=== PATIENT | male | born 1940 | race African-American/Black ===

== ENCOUNTER 2020-05-25 00:21 | Inpatient (IN) | payer OTHER, MEDICARE ==
[~2020-05-25] VITALS: Ht 188 cm; Wt 54.0 kg
--- NOTE | 2020-05-25 00:30 | NUR ---
PT HERNANDO FROM HOME C/O GENERALIZED WEAKNESS AFTER FASTING X10 DAYS. PT STATES THAT "I TRY TO BE HEALTHY", PT ABLE TO MOVE ALL EXTREMITIES, FOLLOWS COMMANDS. PT AAOX4, VSS. NAD, BREATHING EVEN AND UNLABORED. PT CONNECTED TO MONITOR AND POX CALL LIGHT WITHIN REACH. WILL CONTINUE TO MONITOR.
[2020-05-25 00:58] LABS: HEMOGLOBIN 15.6 g/dL (13.5-17.5); MEAN CORPUSCULAR HGB CONC 34 g/dl (31.0-36.0); MEAN CORPUSCULAR VOLUME 89 fL (80-96)
[2020-05-25 01:04] LABS: BASOPHILS % (AUTO) 0.5 % (0.0-2.0); HEMATOCRIT 46 % (39-51); LYMPHOCYTES # (AUTO) 0.6 /CMM (0.8-4.8); LYMPHOCYTES % (AUTO) 8.6 % (20.0-44.0); MONOCYTES # (AUTO) 0.5 /CMM (0.1-1.30); MONOCYTES % (AUTO) 6.3 % (2.0-12.0); NEUTROPHILS # (AUTO) 6.4 /CMM (1.8-8.9); NEUTROPHILS % (AUTO) 84.6 % (43.0-81.0); PLATELET COUNT (AUTO) 230 /CMM (150-450); WHITE BLOOD COUNT (AUTO) 7.6 K/uL (4.3-11.0)
[2020-05-25 01:13] LABS: CALCIUM, SERUM 9.3 mg/dL (8.5-10.1); CARBON DIOXIDE 20 mmol/L (21-32); CHLORIDE 98 mmol/L (98-107); CREATININE 1.8 mg/dL (0.6-1.3); GLUCOSE 130 mg/dL (74-106); POTASSIUM 3.6 mmol/L (3.5-5.1); SODIUM SERUM 135 mmol/L (136-145); UREA NITROGEN, BLOOD 32 mg/dL (7-18)
[2020-05-25 01:18] LABS: ALANINE AMINOTRANSFERASE 39 U/L (12-78); ALKALINE PHOSPHATASE 57 U/L (46-116); ASPARTATE AMINOTRANSFERASE 50 U/L (15-37); BILIRUBIN,DIRECT 0.3 mg/dL (0.0-0.2); BILIRUBIN,TOTAL 1.1 mg/dL (0.2-1.0)
[2020-05-25] MEDS ORDERED: IV NS 0.9% 1,000 ML BAG IV ONE (01:30)
--- NOTE | 2020-05-25 01:47 | NUR ---
FOOD PROVIDED TO PT BUT UNABLE TO TOLERATE EATING. PT STATES "I CANT DO IT. I DONT KNOW WHY AND ITS HARD FOR ME TO EAT. AWARE
--- NOTE | 2020-05-25 02:31 | NUR ---
CALLED NURSING SUP FOR BED
[2020-05-25] MEDS ORDERED: MAG HYDROX/AL HYDROX/SIMETH 30 ML UDC PO PRN ×2 (04:00→07:30)
[2020-05-25] MEDS ORDERED: ACETAMINOPHEN 325 MG TABLET PO PRN ×2 (04:00→07:30)
[2020-05-25] MEDS ORDERED: Z GUARD REMEDY 2 OZ OINT TP PRN ×2 (04:00→07:30)
[2020-05-25] MEDS ORDERED: IV NS 0.9% 1,000 ML IV PRN (04:00)
[2020-05-25] MEDS ORDERED: HYDROCODONE/APAP 5/325MG TABLET PO PRN (04:00)
[2020-05-25] MEDS ORDERED: MAGNESIUM HYDROXIDE 30 ML UDC PO PRN ×2 (04:00→07:30)
[2020-05-25] MEDS ORDERED: ONDANSETRON HCL/PF 4 MG/2 ML VIAL IVP PRN ×2 (04:00→07:30)
--- NOTE | 2020-05-25 04:30 | NUR ---
PT RESTING COMFORTABLY. VSS, NO MEDICAL COMPLAINTS AT THIS TIME. CALL LIGHT WITHIN REACH. WILL CONTINUE TO MONITOR.
--- NOTE | 2020-05-25 07:15 | NUR ---
PT UNABLE TO URINATE. DANICA CORDOVA MADE AWARE
--- NOTE | 2020-05-25 07:23 | NUR ---
REPORT GIVEN TO NIKKI JANE FOR ELIZABETH
[2020-05-25] MEDS ORDERED: TEMAZEPAM 15 MG CAPSULE PO PRN (07:30)
[2020-05-25] MEDS ORDERED: LORAZEPAM INJ 2 MG/ML VIAL IV PRN (07:30)
[2020-05-25 07:43] LABS: BILIRUBIN,URINE NEGATIVE (NEGATIVE); BLOOD, URINE SMALL Ery/uL (NEGATIVE); COLOR,URINE DARK YELLOW (YELLOW); LEUKOCYTE ESTERASE ,URINE NEGATIVE (NEGATIVE); NITRITE, URINE NEGATIVE (NEGATIVE); PH,URINE 5.5 (5.0-8.0); PROTEIN,URINE 100 mg/dl (NEGATIVE); UGLUCOSE NEGATIVE (NEGATIVE); UROBILINOGEN,URINE 0.2 EU/dL (0.2)
--- NOTE | 2020-05-25 07:44 | NUR ---
Made aware of plan of care. Await admission-NO available inpatient beds at this time
[2020-05-25] MEDS ORDERED: PANTOPRAZOLE 40 MG VIAL ONE (07:48)
[2020-05-25] MEDS: IV NS 0.9% 1,000 ML IV PRN ×2 (08:41→14:16)
[2020-05-25] MEDS ORDERED: PANTOPRAZOLE 40 MG VIAL IV SCH (09:00)
[2020-05-25 09:16] LABS: BACTERIA,URINE Rare /HPF (None Seen); RBC,URINE 0-2 /HPF (0-2); SQUAMOUS EPITHELIAL CELL,UR Few /HPF (None Seen); WBC,URINE 0-2 /HPF (0-3)
--- NOTE | 2020-05-25 11:56 | NUR ---
Offered clear liquids-able to tolerate w/o any issue advanced to soft foods as tolerated. Status quo. Still waiting for bed assignment. Denies any pain at this time, Hums at times NO acute distress VS to routine/shift
[2020-05-25 12:18] LABS: BASOPHILS # (AUTO) 0.1 /CMM (0.0-0.2); HEMATOCRIT 43 % (39-51); HEMOGLOBIN 14.5 g/dL (13.5-17.5); LYMPHOCYTES # (AUTO) 0.3 /CMM (0.8-4.8); LYMPHOCYTES % (AUTO) 3.7 % (20.0-44.0); MEAN CORPUSCULAR HGB CONC 34 g/dl (31.0-36.0); MEAN CORPUSCULAR VOLUME 90 fL (80-96); MONOCYTES # (AUTO) 0.4 /CMM (0.1-1.30); MONOCYTES % (AUTO) 4.6 % (2.0-12.0); NEUTROPHILS # (AUTO) 7.2 /CMM (1.8-8.9); NEUTROPHILS % (AUTO) 90.7 % (43.0-81.0); PLATELET COUNT (AUTO) 201 /CMM (150-450); RED BLOOD CELL COUNT(AUTO) 4.81 MIL/uL (4.5-6.0)
[2020-05-25 12:26] LABS: CALCIUM, SERUM 8.7 mg/dL (8.5-10.1); CARBON DIOXIDE 22 mmol/L (21-32); CHLORIDE 103 mmol/L (98-107); CREATININE 1.4 mg/dL (0.6-1.3); GLUCOSE 112 mg/dL (74-106); POTASSIUM 4.2 mmol/L (3.5-5.1); SODIUM SERUM 136 mmol/L (136-145); UREA NITROGEN, BLOOD 27 mg/dL (7-18)
[2020-05-25 12:31] LABS: ALANINE AMINOTRANSFERASE 35 U/L (12-78); ALBUMIN 3.4 g/dL (3.4-5.0); ALKALINE PHOSPHATASE 50 U/L (46-116); ASPARTATE AMINOTRANSFERASE 47 U/L (15-37); BILIRUBIN,TOTAL 0.9 mg/dL (0.2-1.0); MAGNESIUM 2.5 mg/dL (1.8-2.4); PHOSPHORUS 3.1 mg/dL (2.5-4.9); TOTAL PROTEIN, SERUM 7.9 g/dL (6.4-8.2)
[2020-05-25] MEDS ORDERED: LEVOFLOXACIN 750 MG /D5W 150ML 150 ML IV ONE (14:15)
[2020-05-25] MEDS: LEVOFLOXACIN 750 MG /D5W 150ML 150 ML IV SCH (14:16)
--- NOTE | 2020-05-25 16:19 | NUR ---
updated with plan of care. Await admission NO beds available at this time- pt made aware
[2020-05-25] MEDS ORDERED: FAMOTIDINE/PF INJ 20 MG/2 ML VIAL IV ONE (17:11)
--- NOTE | 2020-05-25 17:17 | NUR ---
bed 321-2
[2020-05-25] MEDS: FAMOTIDINE/PF INJ 20 MG/2 ML VIAL IV SCH (17:20)
--- NOTE | 2020-05-25 17:33 | NUR ---
Pt going to 321-2 Report given to BUCK Crawford by Darren JANE
--- NOTE | 2020-05-25 17:36 | NUR ---
report given to antonio dawn. pt awaiting transfer to floor.
--- NOTE | 2020-05-25 18:35 | NUR ---
TELE/RN NOTE Received patient from ER nurse. Vitals taken. Will endorse to warehouse worker 2nd shift nurse for ELIZABETH.
--- NOTE | 2020-05-25 19:30 | NUR ---
MS/RN OPENING NOTES RECEIVED PATIENT RESTING IN BED. PATIENT IS ALERT AND ORIENTED X 3. NO SIGNS OF DISTRESS NOTED. BREATHING IS EVEN AND UNLABORED. NO SIGNS OF SOB OR RESPIRATORY DISTRESS NOTED. IV ACCESS ON RIGHT AC 18G INTACT RUNNING NS AT 125 ML/HR . PATIENT STATES NO PAIN AT THIS TIME. PATIENT REFUSED SKIN ASSESSMENT AND DID NOT WANT TO REMOVE CLOTHES AT THIS TIME, RISK AND BENEFITS HAVE BEEN EXPLAINED TO PATIENT OF SKIN ASSESSMENT. SAFETY MEASURES ARE IN PLACE, BED LOCKED AND PLACED IN THE LOW POSITION CALL LIGHT WITHIN REACH, SIDE RAILS UP X 2. WILL CONTINUE TO MONITOR.
[2020-05-25 20:00] VITALS: BP 113/80
--- NOTE | 2020-05-25 22:50 | NUR ---
TELE/RN NOTES PATIENT HAVING TROUBLE SLEEPING AND IS FEELING RESTLESS. REQUESTING FOR HELP WITH SLEEP. ATIVAN 0.5MG IV WAS GIVEN. V/S ARE STABLE. WILL CONTINUE TO MONITOR.
[2020-05-26] VITALS: BP 114/58
[2020-05-26 04:00] VITALS: BP 122/86
--- NOTE | 2020-05-26 06:20 | NUR ---
MS/RN CLOSING NOTES RECEIVED PATIENT RESTING IN BED. PATIENT IS ALERT AND ORIENTED X 2-3. NO SIGNS OF DISTRESS NOTED. BREATHING IS EVEN AND UNLABORED. NO SIGNS OF SOB OR RESPIRATORY DISTRESS NOTED. IV ACCESS ON RIGHT AC 18G INTACT RUNNING NS AT 125 ML/HR . ALL PATIENT NEEDS HAVE BEEN MET DURING SHIFT. SAFETY MEASURES ARE IN PLACE, BED LOCKED AND PLACED IN THE LOW POSITION CALL LIGHT WITHIN REACH, SIDE RAILS UP X 2. WILL ENDORSE CARE TO DAY SHIFT NURSE.
[2020-05-26 07:21] LABS: BASOPHILS % (AUTO) 0.2 % (0.0-2.0); HEMATOCRIT 43 % (39-51); HEMOGLOBIN 14.5 g/dL (13.5-17.5); LYMPHOCYTES # (AUTO) 0.4 /CMM (0.8-4.8); LYMPHOCYTES % (AUTO) 4.8 % (20.0-44.0); MEAN CORPUSCULAR HGB CONC 34 g/dl (31.0-36.0); MEAN CORPUSCULAR VOLUME 89 fL (80-96); MONOCYTES # (AUTO) 0.4 /CMM (0.1-1.30); MONOCYTES % (AUTO) 5.1 % (2.0-12.0); NEUTROPHILS # (AUTO) 7.1 /CMM (1.8-8.9); NEUTROPHILS % (AUTO) 89.9 % (43.0-81.0); PLATELET COUNT (AUTO) 199 /CMM (150-450); WHITE BLOOD COUNT (AUTO) 7.9 K/uL (4.3-11.0)
[2020-05-26 07:59] LABS: ALANINE AMINOTRANSFERASE 41 U/L (12-78); ALKALINE PHOSPHATASE 44 U/L (46-116); ASPARTATE AMINOTRANSFERASE 62 U/L (15-37); BILIRUBIN,TOTAL 0.8 mg/dL (0.2-1.0); CALCIUM, SERUM 8.4 mg/dL (8.5-10.1); CARBON DIOXIDE 19 mmol/L (21-32); CHLORIDE 103 mmol/L (98-107); CREATININE 1.3 mg/dL (0.6-1.3); GLUCOSE 91 mg/dL (74-106); MAGNESIUM 2.5 mg/dL (1.8-2.4); PHOSPHORUS 3.1 mg/dL (2.5-4.9); POTASSIUM 3.4 mmol/L (3.5-5.1); SODIUM SERUM 136 mmol/L (136-145); TOTAL PROTEIN, SERUM 7.4 g/dL (6.4-8.2); UREA NITROGEN, BLOOD 24 mg/dL (7-18)
[2020-05-26 08:00] VITALS: BP 150/78
--- NOTE | 2020-05-26 08:00 | NUR ---
TRANSFERRED PT TO MS 2 207-1 WITH MEDS AND BELONGINGS AND GAVE REPORT TO BUCK FREDERICK WITH STABLE V/S.
[2020-05-26 08:13] LABS: CHOLESTEROL 142 mg/dL (<200); HDL CHOLESTEROL 36 mg/dL (40-60); LDL 91 mg/dL (0-99); TRIGLYCERIDES 102 mg/dL (30-150)
--- NOTE | 2020-05-26 08:23 | NUR ---
RAIMANN MACHINE OPERATOR OPENING NOTES RECEIVED TRANSFER FROM [facility]; PATIENT AWAKE, A/O X2. PATIENT ON ROOM AIR AT THIS TIME TOLERATING WELL AT 94%; BREATHING IS EVEN AND UNLABORED; NO SOB PRESENT. TELE MONITOR WITH A CURRENT READING OF SINUS RHYTHM 80S. NO COMPLAINS OF PAIN. IV ACCESS MISSING. SAFETY PRECAUTIONS IN PLACE; BED IN LOW POSITION AND LOCKED, RAILS UP X2, CALL LIGHT WITHIN REACH. WILL CONTINUE TO MONITOR PATIENT.
[2020-05-26] MEDS: FAMOTIDINE/PF INJ 20 MG/2 ML VIAL IV SCH ×2 (09:00→17:46)
[2020-05-26] MEDS: IV NS 0.9% 1,000 ML IV PRN ×2 (10:06→12:42)
--- NOTE | 2020-05-26 10:42 | NUR ---
PRINTED CIRCUIT BOARD REWORKER NOTES PATIENT TRANSFERRED TO BUCK TOSCANO FOR CONTINUITY OF CARE.
[2020-05-26] MEDS ORDERED: POTASSIUM CHLORIDE 20 MEQ TAB.PRT.SR PO SCH (11:30)
[2020-05-26 12:00] VITALS: BP_SYST 122; BP_SYST 154; BP_DIAS 61; BP_DIAS 71
[2020-05-26] MEDS: LEVOFLOXACIN 750 MG /D5W 150ML 150 ML IV SCH (12:41)
[2020-05-26] MEDS: ENOXAPARIN SODIUM 40 MG/0.4 ML DISP.SYRIN SQ SCH (12:42)
--- NOTE | 2020-05-26 13:00 | NUR ---
INCINERATOR PLANT LABORER NOTES STARTED NEW PERIPHERAL IV ON LEFT FA. G 22 WITH GOOD BLOOD RETURN.
--- NOTE | 2020-05-26 19:31 | NUR ---
NETWORK OPERATIONS ANALYST NOTES PATIENT IN BED RESTING NO SOB OR ACUTE DISTRESS NOTED. ALL DUE MEDICATIONS ADMINISTERED. ALL NEEDS MET. NO ACUTE CHANGES NOTED DURING AM SHIFT. ENDORSED CARE TO PM SHIFT.
--- NOTE | 2020-05-26 19:50 | NUR ---
ENVIRONMENTAL CONSTRUCTION ENGINEER OPENING NOTES RECEIVED PATIENT RESTING IN BED COMFORTABLY; A/OX4, BREATHING EVEN AND UNLABORED; TOLERATING ROOM AIR WELL BUT USES 4LPM VIA NC PRN; ABLE TO MAKE NEEDS KNOWN; TELE MONITOR READS SINUS RHYTHM 87BPM; R AC # 18 INTACT AND PATENT; TOLERATING IVF WELL; SAFETY PRECAUTIONS IMPLEMENTED; BED LOCKED IN LOW POSITION; SIDE RAILSX2; CALL LIGHT WITHIN REACH; WILL CONT TO MONITOR
[2020-05-26 20:00] VITALS: BP 152/104
--- NOTE | 2020-05-26 20:32 | NUR ---
CONTINUOUS IMPROVEMENT ENGINEER NOTES PATIENT REMOVED IV ACCESS, PATIENT REFUSING RE-INSERTION AT THIS TIME; PATIENT EXPERIENCING SOB DURING ACTIVITY; PATIENT PLACED ON 4LPM VIA NC, TOLERATING WELL; SATTING @ 97%, WILL CONT TO MONITOR
--- NOTE | 2020-05-26 21:00 | NUR ---
CREDIT RISK SPECIALIST NOTES PATIENT REFUSING APPLICATION OF DVT PUMPS HE IS ABLE TO AMBULATE TO THE BATHROOM ON HIS OWN; RISKS/BENEFITS DISCUSSED; PATIENT STILL REFUSED; WILL CONT TO MONITOR
[2020-05-27] VITALS: BP 138/67
--- NOTE | 2020-05-27 03:42 | NUR ---
DIGESTER COOK NOTES PATIENT COVID RESULT POSITIVE; ISOLATION PRECAUTIONS MAINTAINED; WILL CONT TO MONITOR
[2020-05-27 04:00] VITALS: BP 117/71
--- NOTE | 2020-05-27 04:32 | NUR ---
ELECTION ASSISTANT NOTES PATIENT STILL REFUSING IV ACCESS, MD MADE AWARE; AWAITING MD ORDER IF POSSIBLE TO CHANGE IV LEVAQUIN 750MG [id number] TO PO INSTEAD; AWAITING MD ORDERS; WILL INFORM DAY SHIFT; WILL CONT TO MONITOR
--- NOTE | 2020-05-27 05:32 | NUR ---
CUSTOM DECORATING CONSULTANT NOTES PER VAMSHI WASSERMAN TO CHANGE LEVAQUIN 750MG IV TO PO INSTEAD; ORDERS RECEIVED AND READ BACK, FOLLOWED THROUGH; WILL INFORM DAY SHIFT AND CONT TO MONITOR PATIENT;
--- NOTE | 2020-05-27 06:50 | NUR ---
BRAZER REPAIR AND SALVAGE CLOSING NOTES PATIENT RESTING IN BED COMFORTABLY; A/OX2-3, AGGRAVATED D/T FINDING OUT COVID RESULT IS POSITIVE; PER PATIENT, HE HAS BEEN ISOLATION AT HOME SINCE AUGUST AND RARELY GOES OUT OF HIS HOME; PER PATIENT, "HOW CAN I BE COVID+ IF I HAVE BEEN CAREFUL, I ONLY TOOK THE AMBULANCE FOR A COUPLE MINUTES AND ALL OF A SUDDEN I AM POSITIVE?" PATIENT EDUCATED ON COVID, PATIENT STILL ANGRY; PATIENT NON-COMPLIANT AT TIMES; BREATHING EVEN AND UNLABORED; PATIENT TOLERATING 4LPM VIA NC PRN WELL; NO SOB NOTED; TELE MONITOR READS SINUS RHYTHM; PATIENT STILL REFUSING IV ACCESS; MADE AWARE, OK TO CHANGE ORDER FROM IV LEVAQUIN 750MG TO PO; WILL INFORM DAY SHIFT; ALL NEEDS RENDERED; SAFETY PRECAUTIONS IMPLEMENTED; BED LOCKED IN LOW POSITION; SIDE RAILSX2; CALL LIGHT WITHIN REACH; WILL ENDORSE ELIZABETH TO ONCOMING SHIFT
[2020-05-27 07:35] LABS: CALCIUM, SERUM 8.8 mg/dL (8.5-10.1); CREATININE 1.3 mg/dL (0.6-1.3); POTASSIUM 3.5 mmol/L (3.5-5.1)
--- NOTE | 2020-05-27 07:50 | NUR ---
TELE/RN OPENING NOTES RECEIVED PATIENT IS ON BED, AWAKE, ALERT AND ORIENTED X 4. NO COMPLAINED OF PAIN AT THIS TIME. PATIENT IN NO APPARENT RESPIRATORY DISTRESS NOTED. TELE MONITOR READING SR 86 BPM. OXYGEN AT 4L/MIN TOLERATING WILL. WILL CONTINUE TO MONITOR.
[2020-05-27 08:00] VITALS: BP 133/57
[2020-05-27] MEDS: ENOXAPARIN SODIUM 40 MG/0.4 ML DISP.SYRIN SQ SCH (08:19)
[2020-05-27] MEDS: FAMOTIDINE/PF INJ 20 MG/2 ML VIAL IV SCH (08:31)
--- NOTE | 2020-05-27 08:32 | NUR ---
MS/RN NOTES PATIENT REFUSED TO INSERT PERIPHERAL IV ACCESS AND FAMOTIDINE 20MG IV, EXPLAINED THE RISK AND BENEFITS.
[2020-05-27] MEDS ORDERED: CEFEPIME 1 GM in IV D5W 50 ML IV SCH (11:30)
[2020-05-27 12:00] VITALS: BP 146/74
[2020-05-27] MEDS: DOXYCYCLINE HYCLATE (100 MG) 100 MG TABLET PO SCH ×2 (12:27→20:53)
[2020-05-27] MEDS: DEXAMETHASONE SOD PHOSPHATE 10 MG/ML VIAL IV SCH (12:28)
[2020-05-27] MEDS: ENSURE ENLIVE CHOC 237 ML CAN PO SCH ×2 (12:29→16:55)
[2020-05-27] MEDS: IV NS 0.9% 1,000 ML IV PRN (12:48)
[2020-05-27] MEDS: CEFEPIME 2 GM in IV D5W 100 ML IV SCH ×2 (13:50→23:04)
[2020-05-27] MEDS ORDERED: LEVOFLOXACIN (250MG) 250 MG TABLET PO SCH (14:00)
[2020-05-27] MEDS ORDERED: REMDESIVIR (CHARGED) 200 MG, *LOADING DOSE 1 EA in IV NS 0.9% 210 ML IV ONE (15:00)
[2020-05-27 16:00] VITALS: BP 147/77
[2020-05-27] MEDS: PANTOPRAZOLE 40 MG TABLET.DR PO SCH (16:56)
--- NOTE | 2020-05-27 19:35 | NUR ---
RN OPENING NOTES RECEIVED PT IN BED, RESTING A/O X3. ISOLATION PRECAUTIONS IN PLACE PER COVID 19 POSITIVE RESULT. PT IS NOT IN ANY RESPIRATORY DISTRESS, NO SOB NOTED. PT IS CURRENTLY ON OXYGEN AT 4 L/MIN VIA NASAL CANNULA TOLERATING WELL. BREATHING IS EVEN AND UNLABORED AT THIS TIME. ON TELE MONITOR READING SINUS RHYTHM 78 BPM WITH BBB, PT BASELINE. IV ACCESS AT LEFT HAND # 22 PATENT AND INTACT. SAFETY PRECAUTIONS IN PLACE. HOB ELEVATED TOLERATED. PT ID BAND ON. BED IN LOCKED IN LOWEST POSITION WITH BED ALARM ON. SIDE RAILS UP X2. CALL LIGHT WITHIN REACH. WILL CONTINUE TO MONITOR.
--- NOTE | 2020-05-27 19:48 | NUR ---
TELE/RN CLOSING NOTES PATIENT IS ON BED. ALERT AND ORIENTED X3. PATIENT IN NO APPARENT RESPIRATORY DISTRESS NOTED. NO COMPLAINED OF PAIN NOTED AT THIS TIME. OXYGEN AT 4 L/MIN VIA NASAL CANNULA TOLERATING WELL. TELE MONITOR READING SINUS RHYTHM 78 BPM WITH BBB. SEEN AND EXAMINED BY MD WITH ORDERS. IV ACCESS AT LEFT HAND # 22 G PATENT AND INTACT. ALL DUE MEDICATION WAS GIVEN. SAFETY PRECAUTIONS WAS IN PLACED. BED IN LOWEST POSITION AND LOCKED. SIDERAILS UP X2. CALL LIGHT WITHIN REACH. WILL ENDORSED TO SCHOOL PHYSICAL THERAPIST FOR ELIZABETH.
[2020-05-27 20:00] VITALS: BP 98/62
--- NOTE | 2020-05-27 23:05 | NUR ---
PT STILL RECEIVING FLUIDS ORDERED WITH ABX ORDERED. NO S/S OF INFILTRATION NOTED AT THIS TIME. WILL CONTINUE TO MONITOR.
[2020-05-28] VITALS: BP 133/74
--- NOTE | 2020-05-28 02:44 | NUR ---
PT RESTING WITH BLANKET OVER HIS HEAD. WHEN ASKED ABOUT BLANKET, PT VERBALIZED HE IS COMFORTABLE THIS WAY. PT IS NOT IN DISTRESS AT THIS TIME. DENIES PAIN. WILL CONTINUE TO MONITOR.
--- NOTE | 2020-05-28 04:07 | NUR ---
UPON ENTERING PT ROOM, IV HAS BEEN REMOVED. PT VERBALIZES IT JUST CAME OUT. CATHETER REMAINS INTACT, NO SIGNS OR SYMPTOMS OF BLEEDING NOTED. WHEN ASKED TO PLACE ANOTHER IV, PT IS WILLING ONLY ON THE LEFT SIDE AND IF IT IS ON A SINGLE ATTEMPT. WHEN USING THE VEIN FINDER/ACCU VEIN, THE RIGHT SIDE SHOWS OPTIONS TO START A NEW IV COMPARED TO LEFT. PT REFUSES IV START AT THIS TIME WHEN ASKED TO PLACE ON THE RIGHT SIDE. EXPLAINED IMPORTANCE RISKS AND BENEFITS X2 PT STILL REFUSED. WILL FOLLOW UP.
[2020-05-28 04:19] VITALS: BP 116/72
--- NOTE | 2020-05-28 06:14 | NUR ---
UNABLE TO PLACE IV AT THIS TIME EVEN WITH VEIN FINDER, PT HAS ROLLING VEINS AND CONTINUES TO MOVE DURING INSERTION. WILL ENDORSE ONCOMING NURSE FOR POSSIBLE MIDLINE IF NOT PERIPHERAL IV SITE.
[2020-05-28 06:21] LABS: BASOPHILS % (AUTO) 0.3 % (0.0-2.0); EOSINOPHILS % (AUTO) 0.1 % (0.0-6.0); HEMATOCRIT 43 % (39-51); HEMOGLOBIN 14.7 g/dL (13.5-17.5); LYMPHOCYTES # (AUTO) 0.3 /CMM (0.8-4.8); LYMPHOCYTES % (AUTO) 10.2 % (20.0-44.0); MEAN CORPUSCULAR HGB CONC 34 g/dl (31.0-36.0); MEAN CORPUSCULAR VOLUME 87 fL (80-96); MONOCYTES # (AUTO) 0.4 /CMM (0.1-1.30); MONOCYTES % (AUTO) 12.2 % (2.0-12.0); NEUTROPHILS # (AUTO) 2.6 /CMM (1.8-8.9); NEUTROPHILS % (AUTO) 77.2 % (43.0-81.0); PLATELET COUNT (AUTO) 289 /CMM (150-450); RED BLOOD CELL COUNT(AUTO) 4.95 MIL/uL (4.5-6.0); WHITE BLOOD COUNT (AUTO) 3.4 K/uL (4.3-11.0)
[2020-05-28 06:45] LABS: CALCIUM, SERUM 8.5 mg/dL (8.5-10.1); CREATININE 1.2 mg/dL (0.6-1.3); POTASSIUM 3.9 mmol/L (3.5-5.1)
--- NOTE | 2020-05-28 06:59 | NUR ---
RN CLOSING NOTES PT IS CURRENTLY RESTING IN BED. NO SIGNIFICANT CHANGES THROUGHOUT MY SHIFT, PT SLEPT WELL. AFEBRILE. PT DENIES PAIN AT THIS TIME. NO S/S OF RESPIRATORY DISTRESS NOTED. PT ON 4L NASAL CANNULA. PT TOLERATING WELL. BREATHING IS EVEN AND UNLABORED AT THIS TIME. PT STILL ON TELE MONITOR. PRESENTING WITH BASELINE HEART RHYTHM NSR. PT IS AFEBRILE, DENIES PAIN. NEEDS ATTENDED. SAFETY MEASURES IN PLACE. HOB ELEVATED TOLERATED. BED IS LOCKED IN LOWEST POSITION. SIDE RAILS UP X2. CALL LIGHT WITHIN REACH. WILL ENDORSE TO MORNING NURSE FOR CONTINUATION OF CARE.
[2020-05-28 08:00] VITALS: BP 129/77
[2020-05-28] MEDS: ENSURE ENLIVE CHOC 237 ML CAN PO SCH ×2 (08:00→17:00)
--- NOTE | 2020-05-28 08:00 | NUR ---
RN Opening note Received patient in bed sleeping AO x 2-3 able to responds all stimuli, does no appears pain or discomfort. Skin is warm to touch keep clean/dry, manager shift mentioned that there's no IV site and patient allowed make IV line only one time to nurse, therefore, no IV line currently, asked MD if okay to get midline. Respiratory even and unlabored with oxygen at 4LPM O2sat 98%, no sob or distress observed. Kept bed locked with elevated HOB for ensure airway and aspiration precaution also lowest bed position for safety. Call light within reach will continue to monitor.
[2020-05-28] MEDS: DOXYCYCLINE HYCLATE (100 MG) 100 MG TABLET PO SCH ×2 (08:55→20:55)
[2020-05-28] MEDS: ENOXAPARIN SODIUM 40 MG/0.4 ML DISP.SYRIN SQ SCH (08:58)
[2020-05-28 11:01] LABS: C-REACTIVE PROTEIN 23.9 mg/dL (0.0-0.9)
[2020-05-28] MEDS ORDERED: IV NS 0.9% 1,000 ML IV PRN (11:47)
[2020-05-28 12:00] VITALS: BP 140/81
[2020-05-28 12:34] LABS: ALBUMIN 2.9 g/dL (3.4-5.0); BILIRUBIN,DIRECT 0.2 mg/dL (0.0-0.2); BILIRUBIN,TOTAL 0.5 mg/dL (0.2-1.0); TOTAL PROTEIN, SERUM 7.8 g/dL (6.4-8.2)
[2020-05-28] MEDS: DEXAMETHASONE SOD PHOSPHATE 10 MG/ML VIAL IV SCH (15:50)
[2020-05-28] MEDS: CEFEPIME 2 GM in IV D5W 100 ML IV SCH (15:50)
[2020-05-28 16:00] VITALS: BP 124/71
--- NOTE | 2020-05-28 16:00 | NUR ---
Patient consent sign for Plasma.
[2020-05-28] MEDS: REMDESIVIR (CHARGED) 100 MG in IV NS 0.9% 230 ML IV SCH (16:26)
[2020-05-28] MEDS: PANTOPRAZOLE 40 MG TABLET.DR PO SCH (16:43)
--- NOTE | 2020-05-28 18:26 | NUR ---
RN Closing note Patient in bed resting after finished eat dinner, does no appears pain or distress. Skin is warm to touch intact new midline site on right upper arm good patency with flash. Respiratory even and unlabored with oxygen at 2LPM O2sat 96%. Kept locked bed with elevated HOB for ensure airway and aspiration precaution also lowest position for safety, call light within reach, will endorse shift supervisor.
--- NOTE | 2020-05-28 19:38 | NUR ---
RN opening notes Patient received resting in bed a/o x 2-3. On 2l of O2 with breathing even and unlabored, no sob noted. No signs of acute distress. No complaints of pain or discomfort at the moment. Tele monitor reading SR. MELANIE midline patent and intact running NS @ 125 ml/hr. Safety precautions in place with bed in lowest position, call light within reach, breaks on, side rails up. Will continue to monitor throughout the night.
[2020-05-28 20:00] VITALS: BP 128/76
--- NOTE | 2020-05-28 23:23 | NUR ---
RN NOTES FOLLOWED UP CONVALESCENT PLASMA WITH BLOOD BANK, NEED MD SIGNATURE. WILL FOLLOW UP WITH AM SHIFT.
[2020-05-29] VITALS: BP 127/76
[2020-05-29] MEDS: CEFEPIME 2 GM in IV D5W 100 ML IV SCH ×2 (00:14→13:20)
[2020-05-29 04:00] VITALS: BP 127/77
--- NOTE | 2020-05-29 07:04 | NUR ---
RN CLOSING notes Patient resting in bed a/o x 2-3. On 2l of O2 with breathing even and unlabored, no sob noted. No signs of acute distress. No complaints of pain or discomfort at the moment. Tele monitor reading SR. MELANIE midline patent and intact running NS @ 75 ml/hr. Safety precautions in place with bed in lowest position, call light within reach, breaks on, side rails up. All needs attended to. Will endorse to oncoming shift about pradip.
--- NOTE | 2020-05-29 07:53 | NUR ---
TWISTING OPERATOR OPEN NOTES PATIENT IS A/O X 3 WITH NO SIGNS OF DISTRESS ON 2L OF NASAL CANNULA. NO COMPLAIN OF PAIN AT THIS TIME. TELE MONITOR. R UA MIDLINE RUNNING NS AT 75 ML/HR. SAFETY MEASURES ARE APPLIED, BED IS IN LOW POSITION SIDE RAILS UP X 2. CALL LIGHT WITHIN REACH WILL CONTINUE TO MONITOR.
--- NOTE | 2020-05-29 07:55 | NUR ---
PATIENT REFUSED BLOOD DRAW FROM LAB AFTER EDUCATING THE PATIENT ABOUT THE RISKS AND BENEFITS, PATIENT STILL REFUSED.
[2020-05-29 08:00] VITALS: BP 149/76
[2020-05-29] MEDS: DEXAMETHASONE SOD PHOSPHATE 10 MG/ML VIAL IV SCH (09:05)
[2020-05-29] MEDS: DOXYCYCLINE HYCLATE (100 MG) 100 MG TABLET PO SCH ×2 (09:05→21:50)
[2020-05-29] MEDS: ENOXAPARIN SODIUM 40 MG/0.4 ML DISP.SYRIN SQ SCH (09:06)
[2020-05-29] MEDS: ENSURE ENLIVE CHOC 237 ML CAN PO SCH ×2 (09:09→17:00)
[2020-05-29 12:00] VITALS: BP 125/71
--- NOTE | 2020-05-29 15:46 | NUR ---
PER COURTNEY MISHRA., OK TO GIVE PATIENT REMDESIVER, WILL MONITOR CBC AND BMP LABS TOMORROW MORNING.
[2020-05-29] MEDS: REMDESIVIR (CHARGED) 100 MG in IV NS 0.9% 230 ML IV SCH (15:47)
[2020-05-29 16:00] VITALS: BP 120/67
[2020-05-29] MEDS: PANTOPRAZOLE 40 MG TABLET.DR PO SCH (18:04)
--- NOTE | 2020-05-29 19:02 | NUR ---
TRICOT KNITTER CLOSED NOTES PATIENT IS A/O X 3 WITH NO SIGNS OF DISTRESS ON 2L OF NASAL CANNULA. NO COMPLAIN OF PAIN AT THIS TIME. TELE MONITOR. R UA MIDLINE SL. PATIENT KEPT CLEAN AND DRY. ALL NEEDS, CARE, TREATMENT,AND MEDICATIONS WERE ADMINISTERED ANTICIPATED PER ORDER. SAFETY MEASURES ARE APPLIED, BED IS IN LOW POSITION SIDE RAILS UP X 2. CALL LIGHT WITHIN REACH WILL ENDORSE TO THE DEEP WELL CONTRACTOR NURSE.
[2020-05-29 20:00] VITALS: BP 126/80
[2020-05-30] VITALS (8 sets, daily range): BP systolic 118–133; BP diastolic 60–81
[2020-05-30 00:01] LABS: BASOPHILS % (AUTO) 0.2 % (0.0-2.0); EOSINOPHILS % (AUTO) 0.1 % (0.0-6.0); HEMATOCRIT 42 % (39-51); HEMOGLOBIN 14.2 g/dL (13.5-17.5); LYMPHOCYTES # (AUTO) 0.6 /CMM (0.8-4.8); LYMPHOCYTES % (AUTO) 5.5 % (20.0-44.0); MEAN CORPUSCULAR HGB CONC 34 g/dl (31.0-36.0); MEAN CORPUSCULAR VOLUME 89 fL (80-96); MONOCYTES # (AUTO) 0.7 /CMM (0.1-1.30); MONOCYTES % (AUTO) 6.8 % (2.0-12.0); NEUTROPHILS # (AUTO) 9.3 /CMM (1.8-8.9); NEUTROPHILS % (AUTO) 87.4 % (43.0-81.0); PLATELET COUNT (AUTO) 333 /CMM (150-450); RED BLOOD CELL COUNT(AUTO) 4.73 MIL/uL (4.5-6.0); WHITE BLOOD COUNT (AUTO) 10.6 K/uL (4.3-11.0)
[2020-05-30 00:18] LABS: ALBUMIN 2.7 g/dL (3.4-5.0); BILIRUBIN,DIRECT 0.1 mg/dL (0.0-0.2); BILIRUBIN,TOTAL 0.4 mg/dL (0.2-1.0); CALCIUM, SERUM 8.4 mg/dL (8.5-10.1); CREATININE 1.1 mg/dL (0.6-1.3); TOTAL PROTEIN, SERUM 6.9 g/dL (6.4-8.2)
[2020-05-30] MEDS: CEFEPIME 2 GM in IV D5W 100 ML IV SCH ×2 (00:20→12:07)
[2020-05-30 07:08] LABS: BASOPHILS % (AUTO) 0.4 % (0.0-2.0); EOSINOPHILS % (AUTO) 0.5 % (0.0-6.0); HEMATOCRIT 42 % (39-51); HEMOGLOBIN 13.9 g/dL (13.5-17.5); LYMPHOCYTES # (AUTO) 0.7 /CMM (0.8-4.8); LYMPHOCYTES % (AUTO) 7.7 % (20.0-44.0); MEAN CORPUSCULAR HGB CONC 34 g/dl (31.0-36.0); MEAN CORPUSCULAR VOLUME 89 fL (80-96); MONOCYTES # (AUTO) 0.7 /CMM (0.1-1.30); MONOCYTES % (AUTO) 7.8 % (2.0-12.0); NEUTROPHILS # (AUTO) 7.9 /CMM (1.8-8.9); NEUTROPHILS % (AUTO) 83.6 % (43.0-81.0); PLATELET COUNT (AUTO) 346 /CMM (150-450); WHITE BLOOD COUNT (AUTO) 9.4 K/uL (4.3-11.0)
[2020-05-30 07:32] LABS: ALBUMIN 2.7 g/dL (3.4-5.0); BILIRUBIN,DIRECT 0.2 mg/dL (0.0-0.2); BILIRUBIN,TOTAL 0.5 mg/dL (0.2-1.0); CALCIUM, SERUM 8.3 mg/dL (8.5-10.1); CREATININE 1.1 mg/dL (0.6-1.3); POTASSIUM 3.6 mmol/L (3.5-5.1); TOTAL PROTEIN, SERUM 6.8 g/dL (6.4-8.2)
--- NOTE | 2020-05-30 07:38 | NUR ---
BEHAVIORAL SCHOOL COUNSELORS NOTE PATIENT IN BED RESTING COMFORTABLY. PATIENT IN NO ACUTE DISTRESS. NO SOB NOTED. PATIENT BREATHING IS EVEN AND UNLABORED. PATIENT ON CARDIAC MONITORING READING SINUS RHYTHM HR 71. PATIENT SAFETY PRECAUTIONS IN PLACE. BED ALARM IS ON. PATIENT BED IS LOCKED AND IN LOWEST POSITION. CALL LIGHT WITHIN REACH. WILL CONTINUE TO MONITOR.
[2020-05-30] MEDS: ENSURE ENLIVE CHOC 237 ML CAN PO SCH ×2 (08:04→17:20)
[2020-05-30] MEDS: DEXAMETHASONE SOD PHOSPHATE 10 MG/ML VIAL IV SCH (08:06)
[2020-05-30] MEDS: DOXYCYCLINE HYCLATE (100 MG) 100 MG TABLET PO SCH ×2 (08:06→21:35)
[2020-05-30] MEDS: ENOXAPARIN SODIUM 40 MG/0.4 ML DISP.SYRIN SQ SCH (08:08)
[2020-05-30] MEDS: REMDESIVIR (CHARGED) 100 MG in IV NS 0.9% 230 ML IV SCH (15:21)
--- NOTE | 2020-05-30 17:20 | NUR ---
RN NOTE PATIENT UNDERGOING CONVALESENT PLASMA TRANSFUSION. NO ADVERSE REACTIONS NOTED. PATIENT BREATHING IS EVEN AND UNLABORED. PATIENT IN NO ACUTE DISTRESS. NO SOB NOTED. PATIENT DENIES PAIN. WILL CONTINUE TO MONITOR.
[2020-05-30] MEDS: PANTOPRAZOLE 40 MG TABLET.DR PO SCH (17:21)
--- NOTE | 2020-05-30 17:55 | NUR ---
GRIEVANCE AND APPEALS SPECIALIST NOTE PATIENT FINISHED CONVALESCENT PLASMA TRANSFUSION. TOLERATED WELL. PATIENT IN NO ACUTE DISTRESS. NO SOB NOTED. PATIENT BREATHING IS EVEN AND UNLABORED. NO ADVERSE REACTIONS NOTED.
--- NOTE | 2020-05-30 18:49 | NUR ---
JAVA SUPPORT ENGINEER NOTE PATIENT IN BED RESTING COMFORTABLY. PATIENT IN NO ACUTE DISTRESS. NO SOB NOTED. PATIENT BREATHING IS EVEN AND UNLABORED. PATIENT ON CARDIAC MONITORING READING SINUS RHYTHM HR 74. PATIENT KEPT CLEAN, DRY, AND COMFORTABLE. PATIENT SAFETY PRECAUTIONS IN PLACE. BED ALARM IS ON. PATIENT BED IS LOCKED AND IN LOWEST POSITION. CALL LIGHT WITHIN REACH. WILL ENDORSE CARE TO PM SHIFT FOR ELIZABETH.
--- NOTE | 2020-05-30 19:48 | NUR ---
SHANK CUTTER NOTES RECEIVED PATIENT IN BED RESTING COMFORTABLY. PATIENT IN NO ACUTE DISTRESS. NO SOB NOTED. PATIENT BREATHING IS EVEN AND UNLABORED. PATIENT ON CARDIAC MONITORING READING SINUS RHYTHM HR 81. SAFETY PRECAUTIONS IN PLACE. BED ALARM IS ON. PATIENT BED IS LOCKED AND IN LOWEST POSITION. CALL LIGHT WITHIN EASY REACH. ALL NEEDS ANTICIPATED. WILL CONTINUE TO MONITOR ACCORDINGLY.
[2020-05-31] MEDS: CEFEPIME 2 GM in IV D5W 100 ML IV SCH ×3 (00:12→23:31)
[2020-05-31 00:31] VITALS: BP 140/68
[2020-05-31 04:55] VITALS: BP 130/78
--- NOTE | 2020-05-31 07:50 | NUR ---
MS RN RECEIVED ON BED,AWAKE,ALERT,ORIENTED X3,NOT IN ANY FORM OF DISTRESS, RESPIRATIONS EVEN AND UNLABORED,NO SOB NOTED,LUNGS ARE DIMINISHED ABDOMEN SOFT,POSITIVE BOWEL SOUNDS,DENIES PAIN AT THIS TIME.ALL NEEDS ATTENDED.
[2020-05-31 07:57] LABS: ALBUMIN 2.7 g/dL (3.4-5.0); BILIRUBIN,DIRECT 0.2 mg/dL (0.0-0.2); BILIRUBIN,TOTAL 0.6 mg/dL (0.2-1.0); TOTAL PROTEIN, SERUM 6.7 g/dL (6.4-8.2)
[2020-05-31] MEDS: ENSURE ENLIVE CHOC 237 ML CAN PO SCH ×2 (08:00→17:00)
[2020-05-31 09:06] VITALS: BP 133/71
--- NOTE | 2020-05-31 09:55 | NUR ---
MS RN DUE MEDS GIVEN,TOLERATED WELL.
[2020-05-31] MEDS: DOXYCYCLINE HYCLATE (100 MG) 100 MG TABLET PO SCH ×2 (10:03→20:59)
[2020-05-31] MEDS: DEXAMETHASONE SOD PHOSPHATE 10 MG/ML VIAL IV SCH (10:03)
[2020-05-31] MEDS: ENOXAPARIN SODIUM 40 MG/0.4 ML DISP.SYRIN SQ SCH (10:14)
[2020-05-31 13:33] VITALS: BP 128/71
[2020-05-31] MEDS: REMDESIVIR (CHARGED) 100 MG in IV NS 0.9% 230 ML IV SCH (15:00)
--- NOTE | 2020-05-31 16:00 | NUR ---
MS JANE WAS SEEN BY COURTNEY, W/ ORDERS MADE AND CARRIED OUT.FOR D/C PLAN IN AM.
--- NOTE | 2020-05-31 16:38 | NUR ---
MS RN ON BED, ALL NEEDS ATTENDED.
[2020-05-31] MEDS: PANTOPRAZOLE 40 MG TABLET.DR PO SCH (17:14)
[2020-05-31 17:33] VITALS: BP 128/71
[2020-05-31 20:00] VITALS: BP_SYST 109; BP_SYST 130; BP_DIAS 72
--- NOTE | 2020-05-31 20:00 | NUR ---
RN NOTES RECEIVED PT, SLEEPING BUT AROUSABLE NOT IN DISTRESS, A/OX3, SR WITH BBB ON TELE MONITOR HR75, BED IN LOW POSITION, CALL LIGHT WITHIN REACH, SIDERAILSUPX2, CONTINUE TO MONITOR
[2020-06-01] VITALS: BP_SYST 109; BP_SYST 130; BP_DIAS 72
[2020-06-01 04:00] VITALS: BP 138/85
--- NOTE | 2020-06-01 06:25 | NUR ---
RN NOTES AWAKE, DENIES PAIN, NO SOB, MORNING CARE RENDERED, CALL LIGHT WITHIN REACH, SIDERAILSUPX2, PT. NEEDS ATTENDED
[2020-06-01 08:00] VITALS: BP 143/83
[2020-06-01 08:17] LABS: BASOPHILS % (AUTO) 0.1 % (0.0-2.0); EOSINOPHILS % (AUTO) 0.8 % (0.0-6.0); HEMATOCRIT 40 % (39-51); HEMOGLOBIN 13.4 g/dL (13.5-17.5); LYMPHOCYTES # (AUTO) 1.2 /CMM (0.8-4.8); LYMPHOCYTES % (AUTO) 8.8 % (20.0-44.0); MEAN CORPUSCULAR HGB CONC 33 g/dl (31.0-36.0); MEAN CORPUSCULAR VOLUME 89 fL (80-96); MONOCYTES % (AUTO) 7.5 % (2.0-12.0); NEUTROPHILS # (AUTO) 11.3 /CMM (1.8-8.9); NEUTROPHILS % (AUTO) 82.8 % (43.0-81.0); PLATELET COUNT (AUTO) 289 /CMM (150-450); WHITE BLOOD COUNT (AUTO) 13.7 K/uL (4.3-11.0)
--- NOTE | 2020-06-01 08:37 | NUR ---
RN NOTES RECEIVED PT, AWAKE IN BED NO SIGNS OF DISTRESS VISIBLE OR REPORTED, A/OX3, BED IN LOW POSITION, CALL LIGHT WITHIN REACH, PT HAS A RIGHT UPPER ARM MIDLINE NO PAIN REDNESS OR SWELLING AT SITE. PT ON 2 L OF O2 VIA NASAL CANNULA. ALL NURSING NEEDS MET WILL CONTINUE TO MONITOR
[2020-06-01] MEDS: DOXYCYCLINE HYCLATE (100 MG) 100 MG TABLET PO SCH (10:19)
[2020-06-01] MEDS: DEXAMETHASONE SOD PHOSPHATE 10 MG/ML VIAL IV SCH (10:24)
[2020-06-01] MEDS: ENOXAPARIN SODIUM 40 MG/0.4 ML DISP.SYRIN SQ SCH (10:35)
[2020-06-01] MEDS: ENSURE ENLIVE CHOC 237 ML CAN PO SCH (10:41)
--- NOTE | 2020-06-01 11:16 | NUR ---
PT AMBULATED WITH P.T.WITH STEADY GAIT.PT'S O2 SAT 96% ON ROOM AIR. NO SOB.
[2020-06-01] MEDS: CEFEPIME 2 GM in IV D5W 100 ML IV SCH ×2 (12:00→13:05)
[2020-06-01 12:12] LABS: ALBUMIN 2.5 g/dL (3.4-5.0); BILIRUBIN,DIRECT 0.2 mg/dL (0.0-0.2); BILIRUBIN,TOTAL 0.6 mg/dL (0.2-1.0); CALCIUM, SERUM 8.7 mg/dL (8.5-10.1); CREATININE 0.9 mg/dL (0.6-1.3); POTASSIUM 4.2 mmol/L (3.5-5.1); TOTAL PROTEIN, SERUM 6.8 g/dL (6.4-8.2)
--- NOTE | 2020-06-01 17:20 | NUR ---
DISCHARGED PT HOME VIA AMBULANCE WITH STABLE V/S.DISCHARGE INSTRUCTIONS,HEALTH,PRESCRIPTION AND MED TEACHING PROVIDED.IV H/L TO MELANIE MIDLINE REMOVED WITHOUT BLEEDING NOTED.DENIES PAIN OR DISTRESS ON ROOM AIR.NO COUGHING NOTED.
== END 2020-06-01 17:20 | disposition home or self-care (01) | DRG 177 ==
LOC: ER 00:24 → TELE 17:26 → TELE2 05-26 08:25
PROVIDERS: ADMIT Nurse Practitioner Acute Care; ATTEND Nurse Practitioner Acute Care
PROC: XW033E5 Introduction of Remdesivir Anti-infective into Peripheral Vein, Percutaneous Approach, New Technology Group 5 (ICD-10-PCS; principal; 2020-05-27)
PROC: 30233L1 Transfusion of Nonautologous Fresh Plasma into Peripheral Vein, Percutaneous Approach (ICD-10-PCS; 2020-05-28)
PROC: 05HY33Z Insertion of Infusion Device into Upper Vein, Percutaneous Approach (ICD-10-PCS; 2020-05-30)
DX: U07.1 COVID-19 (principal); N17.0 Acute kidney failure with tubular necrosis; J12.89 Other viral pneumonia; J96.01 Acute respiratory failure with hypoxia; J15.9 Unspecified bacterial pneumonia; E87.1 Hypo-osmolality and hyponatremia; E87.2 Acidosis; Z20.828 Contact with and (suspected) exposure to other viral communicable diseases; E86.0 Dehydration; E87.6 Hypokalemia; Z90.49 Acquired absence of other specified parts of digestive tract; Z96.0 Presence of urogenital implants; E86.1 Hypovolemia; F29 Unspecified psychosis not due to a substance or known physiological condition; J84.10 Pulmonary fibrosis, unspecified; W18.30XA Fall on same level, unspecified, initial encounter; Y92.000 Kitchen of unspecified non-institutional (private) residence as the place of occurrence of the external cause; I70.0 Atherosclerosis of aorta
CPT/HCPCS: 36415; 70450-TC; 71045-TC; 71250-TC; 76770-TC; 80048-TC; 80053-TC; 80061-TC; 80076-TC; 81001; 82962-TC; 83615-TC; 83735-TC; 84100-TC; 84443-TC; 84484-TC; 85025-TC; 85378-TC; 85610-TC; 85730-TC; 86140-TC; 86850-TC; 87081-TC; 93307-TC; 97112-TC; 97116-TC; 97530-TC; A4216; C9113; C9803; G0378; J0692; J1100; J1650; J1956; J2060; J3490; J7030; J7050; J7060; P9017-BL; U0003

== ENCOUNTER 2020-06-22 11:56 | Inpatient (IN) | payer MEDICARE, OTHER ==
[~2020-06-22] VITALS: Ht 188 cm; Wt 82.1 kg
[2020-06-22 12:22] LABS: BASOPHILS # (AUTO) 0.1 /CMM (0.0-0.2); BASOPHILS % (AUTO) 0.9 % (0.0-2.0); EOSINOPHILS % (AUTO) 0.5 % (0.0-6.0); HEMATOCRIT 44 % (39-51); HEMOGLOBIN 14.9 g/dL (13.5-17.5); LYMPHOCYTES # (AUTO) 0.5 /CMM (0.8-4.8); LYMPHOCYTES % (AUTO) 5.8 % (20.0-44.0); MEAN CORPUSCULAR HGB CONC 34 g/dl (31.0-36.0); MEAN CORPUSCULAR VOLUME 91 fL (80-96); MONOCYTES # (AUTO) 0.4 /CMM (0.1-1.30); MONOCYTES % (AUTO) 4.4 % (2.0-12.0); NEUTROPHILS # (AUTO) 8.3 /CMM (1.8-8.9); NEUTROPHILS % (AUTO) 88.4 % (43.0-81.0); PLATELET COUNT (AUTO) 209 /CMM (150-450); RED BLOOD CELL COUNT(AUTO) 4.87 MIL/uL (4.5-6.0); WHITE BLOOD COUNT (AUTO) 9.4 K/uL (4.3-11.0)
--- NOTE | 2020-06-22 12:29 | NUR ---
HERNANDO FROM HOME TO ER BED 6. AAOX4. IN MILD RESP DISTRESS, TACHYPNEIC AND NOTED O2 SAT @ 88% ON RA. AMBULATORY. BROUGHT IN FOR SOB. EMS REPORTS THAT PT WAS NOTED WITH O2 SAT IN THE 80% SENIOR CONSTRUCTION MANAGER. PT WAS RECEIVED ON NON REBREATHER MASK @ 15LPM. PT O2 TITRATED DOWN TO 6LPM VIA NC AND SATTING @ 96% AND BREATHING BETTER. PT REPORTS OF HISTORY OF BEING HOSPITALIZED FOR COVID AND RELEASED ON 06/01/20. PT DENIES CHEST PAIN. WAS AT THE BEDSIDE FOR EVAL. ORDERS RECEIVED, NOTED AND CARRIED OUT. IV LINE ESTABLISHED ON R AC 18G, BLOOD DRAWN AND GIVEN TO MINK SLICER AT BEDSIDE. COVID AND FLU SWAB DONE. WILL CONTINUE TO MONITOR
[2020-06-22 12:31] LABS: CALCIUM, SERUM 8.4 mg/dL (8.5-10.1); CARBON DIOXIDE 22 mmol/L (21-32); CHLORIDE 105 mmol/L (98-107); CREATININE 1.5 mg/dL (0.6-1.3); GLUCOSE 144 mg/dL (74-106); POTASSIUM 3.7 mmol/L (3.5-5.1); SODIUM SERUM 141 mmol/L (136-145); UREA NITROGEN, BLOOD 9 mg/dL (7-18)
--- NOTE | 2020-06-22 12:34 | NUR ---
XRAY AT THE BEDSIDE
[2020-06-22 12:44] LABS: ALANINE AMINOTRANSFERASE 28 U/L (12-78); ALBUMIN 2.8 g/dL (3.4-5.0); ALKALINE PHOSPHATASE 71 U/L (46-116); ASPARTATE AMINOTRANSFERASE 26 U/L (15-37); B-TYPE NATRIURETIC PEPTIDE 6934 PG/ML (0-125); BILIRUBIN,TOTAL 0.9 mg/dL (0.2-1.0); TOTAL PROTEIN, SERUM 7.4 g/dL (6.4-8.2)
[2020-06-22] MEDS ORDERED: PIPERACILLIN /TAZOBACTAM 3.375 G in IV D5W 50 ML IV ONE (13:00)
[2020-06-22] MEDS ORDERED: DEXAMETHASONE SOD PHOSPHATE 10 MG/ML VIAL IV ONE (13:00)
[2020-06-22 13:05] LABS: D-DIMER 35.2 mg/L(FEU (0.17-0.50)
--- NOTE | 2020-06-22 13:07 | NUR ---
CALLED [facility] PAGED DR REHMAN
[2020-06-22 13:24] LABS: ABG BASE EXCESS -0.3 mmol/L; ABG OXYGEN SATURATION 97.7 % (92.0-98.5); ABG PCO2 26.3 mmHg (35.0-45.0); ABG PO2 108.4 mmHg (75.0-100.0); AaDO2 146.6 mmHg; COHb 13.7 % (0.5-1.5); MetHb 0.3 % (0.0-1.5); SITE, ABG Right Radial; VENT MODE, BG NC 5 L
[2020-06-22] MEDS ORDERED: PIPERACILLIN /TAZOBACTAM 3.375 G VIAL IV ONE (13:43)
[2020-06-22] MEDS ORDERED: DEXAMETHASONE SOD PHOSPHATE 10 MG/ML VIAL ONE (13:43)
[2020-06-22] MEDS ORDERED: ASPIRIN 325 MG TABLET ONE (13:43)
[2020-06-22] MEDS ORDERED: ASPIRIN 325 MG TABLET PO ONE (14:00)
[2020-06-22] MEDS ORDERED: ACETAMINOPHEN 325 MG TABLET PO PRN (14:30)
[2020-06-22] MEDS ORDERED: ONDANSETRON HCL/PF 4 MG/2 ML VIAL IVP PRN (14:30)
[2020-06-22] MEDS ORDERED: ZOLPIDEM TARTRATE 5 MG TABLET PO PRN (14:30)
[2020-06-22] MEDS ORDERED: MAGNESIUM HYDROXIDE 30 ML UDC PO PRN (14:30)
[2020-06-22] MEDS ORDERED: Z GUARD REMEDY 2 OZ OINT TP PRN (14:30)
[2020-06-22] MEDS ORDERED: IV NS 0.9% 1,000 ML IV PRN (14:30)
[2020-06-22] MEDS ORDERED: MAG HYDROX/AL HYDROX/SIMETH 30 ML UDC PO PRN (14:30)
[2020-06-22] MEDS ORDERED: HYDROCODONE/APAP 5/325MG TABLET PO PRN (14:30)
[2020-06-22 15:13] LABS: BILIRUBIN,DIRECT 0.2 mg/dL (0.0-0.2)
[2020-06-22 15:44] LABS: C-REACTIVE PROTEIN 12.4 mg/dL (0.0-0.9)
--- NOTE | 2020-06-22 19:30 | NUR ---
PT RESTING COMFORTABLY IN BED. VITAL SIGNS STABLE. WILL CONTINUE TO MONITOR
--- NOTE | 2020-06-22 21:28 | NUR ---
PT IS ON O2 VIA NC @ 4LPM. TOLERATING WELL, SATTING @ 96%. EVEN AND UNLABOREC BREATHING
--- NOTE | 2020-06-22 21:32 | NUR ---
Elina hatfield in [facility] - 06/23/20 at 0798 by GALEN PT IN BED SLEEPING. NAD NOTED
[2020-06-22] MEDS ORDERED: VANCOMYCIN 1.5 GM in IV D5W 500ml IV ONE (23:45)
[2020-06-22] MEDS ORDERED: VANCOMYCIN 1 GM VIAL ONE (23:47)
[2020-06-22] MEDS ORDERED: VANCOMYCIN 500 MG VIAL ONE (23:47)
[2020-06-23] MEDS ORDERED: CEFEPIME 2 GM in IV D5W 100 ML IV ONE ×2
[2020-06-23] MEDS ORDERED: CEFEPIME 1 GM VIAL ONE ×2 (01:53→02:03)
--- NOTE | 2020-06-23 04:21 | NUR ---
PT RESTING COMFORTABLY IN BED. VITAL SIGNS STABLE. NO ACUTE DISTRESS NOTED AT THIS TIME. STILL ON MONITOR. CALL LIGHT WITHIN REACH, WILL CONTINUE TO MONITOR
[2020-06-23 06:18] LABS: BASOPHILS % (AUTO) 0.3 % (0.0-2.0); EOSINOPHILS % (AUTO) 0.3 % (0.0-6.0); HEMATOCRIT 43 % (39-51); MEAN CORPUSCULAR HGB CONC 33 g/dl (31.0-36.0); MEAN CORPUSCULAR VOLUME 91 fL (80-96); MONOCYTES # (AUTO) 0.7 /CMM (0.1-1.30); MONOCYTES % (AUTO) 10.7 % (2.0-12.0); NEUTROPHILS # (AUTO) 4.7 /CMM (1.8-8.9); NEUTROPHILS % (AUTO) 73.7 % (43.0-81.0); PLATELET COUNT (AUTO) 177 /CMM (150-450); RED BLOOD CELL COUNT(AUTO) 4.71 MIL/uL (4.5-6.0); WHITE BLOOD COUNT (AUTO) 6.4 K/uL (4.3-11.0)
[2020-06-23 06:27] LABS: CREATINE KINASE, TOTAL 48 U/L (39-308); FERRITIN 913 ng/mL (8-388)
[2020-06-23 06:30] LABS: B-TYPE NATRIURETIC PEPTIDE 5076 PG/ML (0-125); CALCIUM, SERUM 8.5 mg/dL (8.5-10.1); CARBON DIOXIDE 27 mmol/L (21-32); CHLORIDE 106 mmol/L (98-107); CREATININE 1.1 mg/dL (0.6-1.3); GLUCOSE 104 mg/dL (74-106); MAGNESIUM 2.4 mg/dL (1.8-2.4); PHOSPHORUS 4.1 mg/dL (2.5-4.9); POTASSIUM 4.8 mmol/L (3.5-5.1); SODIUM SERUM 140 mmol/L (136-145); UREA NITROGEN, BLOOD 14 mg/dL (7-18)
[2020-06-23 06:48] LABS: D-DIMER > 35.20 mg/L(FEU (0.17-0.50)
[2020-06-23] MEDS ORDERED: PANTOPRAZOLE 40 MG TABLET.DR PO SCH (07:30)
[2020-06-23] MEDS ORDERED: DEXAMETHASONE SOD PHOSPHATE 10 MG/ML VIAL ONE (08:19)
[2020-06-23] MEDS ORDERED: PANTOPRAZOLE 40 MG VIAL ONE (08:19)
[2020-06-23] MEDS ORDERED: PANTOPRAZOLE 40 MG TABLET.DR PO ONE (08:22)
[2020-06-23] MEDS ORDERED: DEXAMETHASONE SOD PHOSPHATE 10 MG/ML VIAL IV SCH (09:00)
--- NOTE | 2020-06-23 09:00 | NUR ---
PATIENT A/OX4, ON 4LPM VIA NC WITH SPO2 OF 96%. BREATHING EVEN AND UNLABORED, NO SOB NOTED.
[2020-06-23] MEDS: VANCOMYCIN 1 GM in IV D5W 250ml IV SCH (12:27)
[2020-06-23] MEDS ORDERED: CEFEPIME 2 GM in IV D5W 100 ML IV SCH (14:00)
--- NOTE | 2020-06-23 14:16 | NUR ---
PATIENT RESTING, NO DISTRESS NOTED. NEEDS ATTENDED. ATE BREAKFAST AND LUNCH, AND TOLERATED WELL.
--- NOTE | 2020-06-23 19:23 | NUR ---
PATIENT RESTING, ALL NEEDS ATTENDED, KEPT COMFORTABLE, WILL CONTINUE TO MONITOR.
--- NOTE | 2020-06-23 19:30 | NUR ---
PT REC'D IN BED, ON 4LNC. SAT 96-98%. PT HERE FOR SOB. PT AAOX4, PT NOT IN ANY ACUTE DISTRESS, AMBULATORY W STEADY GAIT, CALL LIGHT WITHIN REACH. VSS. TM
[2020-06-23] MEDS ORDERED: ATROPINE SULFATE 1 MG/10 ML DISP.SYRIN ONE (21:00)
[2020-06-23] MEDS ORDERED: EPINEPHRINE (1:10,000) SYRINGE 1 MG/10 ML DISP.SYRIN ONE (21:00)
[2020-06-23 21:33] LABS: C-REACTIVE PROTEIN 8.1 mg/dL (0.0-0.9)
[2020-06-24 00:02] VITALS: BP 124/66
[2020-06-24] MEDS: VANCOMYCIN 1 GM in IV D5W 250ml IV SCH (00:50)
--- NOTE | 2020-06-24 01:23 | NUR ---
@ 1:23 ER CALLED A CODE FOR BED 2. CPR PERFORMED. 1:26 AM PT ORALLY INTUBATED WITH ETT 7.0 SECURED @ 24CM LIPLINE. PT @ 1:43
--- NOTE | 2020-06-24 01:23 | NUR ---
CODE BLUE STARTED; SEE CODE SHEET
--- NOTE | 2020-06-24 02:00 | NUR ---
ATTENDING NOTIFIED DR. ORI BUSBY([employer] TEACHER AT BEDSIDE) OF [facility] CALLED- NOT A CANDIDATE, SPOKE TO MARVA #[phone] [facility] OFFICE CALLED, NOT A CORONERS CASE. SPOKE TO SARAH
--- NOTE | 2020-06-24 02:15 | NUR ---
pt body brought to morgue by security.
== END 2020-06-24 01:43 | disposition expired | DRG 871 ==
LOC: ER 12:02 → TRANSITION 22:47
PROC: 0BH18EZ Insertion of Endotracheal Airway into Trachea, Via Natural or Artificial Opening Endoscopic (ICD-10-PCS; principal; 2020-06-24)
PROC: 5A12012 Performance of Cardiac Output, Single, Manual (ICD-10-PCS; 2020-06-24)
DX: A41.89 Other specified sepsis (principal); U07.1 COVID-19; J12.89 Other viral pneumonia; J15.9 Unspecified bacterial pneumonia; I21.A1 Myocardial infarction type 2; N17.0 Acute kidney failure with tubular necrosis; J96.01 Acute respiratory failure with hypoxia; E87.2 Acidosis; E44.1 Mild protein-calorie malnutrition; I48.91 Unspecified atrial fibrillation; E88.09 Other disorders of plasma-protein metabolism, not elsewhere classified; I50.9 Heart failure, unspecified; Z68.23 Body mass index [BMI] 23.0-23.9, adult; N13.9 Obstructive and reflux uropathy, unspecified; R55 Syncope and collapse; Z90.49 Acquired absence of other specified parts of digestive tract; J84.10 Pulmonary fibrosis, unspecified; F99 Mental disorder, not otherwise specified; E78.5 Hyperlipidemia, unspecified; I11.0 Hypertensive heart disease with heart failure; I25.10 Atherosclerotic heart disease of native coronary artery without angina pectoris
CPT/HCPCS: 36415; 36600; 71045-TC; 80048-TC; 80053-TC; 82248-TC; 82550-TC; 82728-TC; 83605-TC; 83615-TC; 83735-TC; 83880; 84100-TC; 84484-TC; 85025-TC; 85378-TC; 85385-TC; 85730-TC; 86140-TC; 87081-TC; C9113; G0378; J0171; J0461; J0692; J1100; J2405; J2543; J3370; J7030; J7060; U0003